=== PATIENT | female | born 1950 | race Hispanic/Latino ===

== ENCOUNTER 2019-04-13 10:23 | Day surgery (SDC) | payer MEDICARE ==
[2019-04-13] VITALS (11 sets, daily range): BP systolic 112–181; BP diastolic 50–81
[~2019-04-13] VITALS: Ht 127 cm; Wt 51.7 kg
[~2019-04-13 10:23] MED LIST: SODIUM CHLORIDE 0.9% 1000ML 1,000 ML IV ONE
[2019-04-13] MEDS ORDERED: ESCI5TAB10 PO (11:41)
[2019-04-13] MEDS ORDERED: LACT10SO PO (11:41)
[2019-04-13] MEDS ORDERED: PROP10TA10 PO (11:41)
[2019-04-13] MEDS ORDERED: VALS160T29 PO (11:41)
[2019-04-13] MEDS ORDERED: FURO20TA6 PO (11:41)
[2019-04-13] MEDS ORDERED: INSU100V37 SQ (11:41)
[2019-04-13] MEDS ORDERED: OMEP40CA37 PO (11:41)
[2019-04-13] MEDS ORDERED: CLON1TAB23 PO (11:41)
[2019-04-13] MEDS ORDERED: ZOLPIDEM (11:41)
[2019-04-13] MEDS ORDERED: GABA-531 PO (11:41)
[2019-04-13] MEDS ORDERED: DEXTROSE 50%-WATER 50 ML DISP.SYRIN IV ONE (12:02)
[2019-04-13] MEDS ORDERED: ACETAMINOPHEN 325 MG TAB ONE (12:54)
[2019-04-13] MEDS ORDERED: ACETAMINOPHEN 325 MG TAB PO SCH (12:56)
--- NOTE | 2019-04-13 13:15 | NUR ---
UPDATE PATIENT GIVEN TYLENOL AT 1256 AND THEN DISCHARGED HOME.
== END 2019-04-13 13:15 | disposition home or self-care (01) ==
LOC: DAH 10:23 → ENDO 10:23
PROVIDERS: ATTEND Internal Medicine
DX: I85.10 Secondary esophageal varices without bleeding (principal); K74.60 Unspecified cirrhosis of liver; K31.89 Other diseases of stomach and duodenum; Z79.899 Other long term (current) drug therapy; Z98.890 Other specified postprocedural states; Z79.4 Long term (current) use of insulin; F41.9 Anxiety disorder, unspecified; F32.9 Major depressive disorder, single episode, unspecified; E11.9 Type 2 diabetes mellitus without complications; D64.9 Anemia, unspecified; M19.90 Unspecified osteoarthritis, unspecified site; Z86.010 Personal history of colon polyps; Z68.32 Body mass index [BMI] 32.0-32.9, adult; Z98.49 Cataract extraction status, unspecified eye; K59.04 Chronic idiopathic constipation
CPT/HCPCS: 43244; 82948 ×2; A4606; J7030; J7070